=== PATIENT | male | born 1950 | race Two or more races ===

== ENCOUNTER 2018-02-24 15:27 | Inpatient (IN) | payer MEDICAID, MEDICARE ==
[~2018-02-24] VITALS: Ht 172.7 cm; Wt 61.2 kg
[2018-02-24] MEDS ORDERED: SODIUM CHLORIDE 0.9% 1,000 ML IV ONE (16:05)
[2018-02-24] MEDS ORDERED: ACETAMINOPHEN 325MG TABLET PO ONE (16:15)
[2018-02-24 16:59] LABS: HEMATOCRIT. 40.8 % (42.0-52.0); MEAN CORPUSCULAR HEMOGLOBIN 28.9 pg (28.0-32.0); MEAN CORPUSCULAR VOLUME 84.3 fL (80.0-94.0); MEAN PLATELET VOLUME 8.9 fl (7.4-10.4); PLATELET 277 x1000/uL (130-400); RED BLOOD CELL COUNT 4.84 mill/uL (4.7-6.1)
[2018-02-24 17:03] LABS: CHLORIDE 107 mEq/L (98-107)
[2018-02-24 17:22] LABS: PLATELET ESTIMATE NORMAL
[2018-02-24] MEDS ORDERED: ASPIRIN 325MG TABLET PO ONE (17:30)
[2018-02-24 17:50] LABS: CLARITY URINE CLEAR (CLEAR); COLOR URINE DARK YELLOW (YELLOW); KETONES URINE 4+ (NEGATIVE); LEUKOCYTE ESTERASE URINE NEGATIVE (NEGATIVE); NITRITE URINE NEGATIVE (NEGATIVE); OCCULT BLOOD URINE 1+ (NEGATIVE); PH URINE 5.5 (4.5-8.0); PROTEIN URINE 1+ (NEGATIVE); SPECIFIC GRAVITY URINE 1.037 (1.005-1.030)
[2018-02-24 18:00] LABS: *COCAINE SCREEN URINE NEGATIVE (NEGATIVE)
[2018-02-24 18:01] LABS: *AMPHETAMINES SCREEN URINE NEGATIVE (NEGATIVE); *BARBITURATES SCREEN URINE NEGATIVE (NEGATIVE); CANNABINOID URINE SCREEN NEGATIVE (NEGATIVE); METHADONE URINE SCREEN NEGATIVE (NEGATIVE); OPIATES URINE SCREEN NEGATIVE (NEGATIVE); PHENCYCLIDINE URINE SCREEN NEGATIVE (NEGATIVE)
[2018-02-24 18:02] LABS: *BENZODIAZEPINES SCREEN URINE NEGATIVE (NEGATIVE)
[2018-02-24 23:58] VITALS: BP 136/72
[2018-02-25] VITALS: BP 136/72
[2018-02-25] MEDS ORDERED: HYDROCODONE/ACETAMINOPHEN 5/325MG TABLET PO PRN (00:15)
[2018-02-25] MEDS ORDERED: ONDANSETRON HCL 4MG/2ML VIAL IV PRN (00:15)
[2018-02-25] MEDS ORDERED: ONDANSETRON 4MG ODT PO PRN (00:15)
[2018-02-25] MEDS: DEXT 5%/0.45% NACL 1000ML 1,000 ML IV SCH ×2 (00:48→14:22)
[2018-02-25] MEDS: MORPHINE SULFATE 4 MG/ML CPJ (NOT FOR IM USE) IV PRN ×2 (06:54→12:44)
[2018-02-25] MEDS: MAGNESIUM/ALUMINUM HYDROXIDE/SIMETHICONE 30ML UDC PO PRN (07:02)
[2018-02-25 08:00] VITALS: BP 135/69
[2018-02-25] MEDS: ASPIRIN 325MG EC TABLET PO SCH (08:44)
[2018-02-25] MEDS: BLOOD SUGAR DIAGNOSTIC STRIP TEST SCH ×3 (11:45→21:10)
[2018-02-25] MEDS ORDERED: DIATR MEGLU/DIATRIZOATE SOLN 30ML ONE (11:45)
[2018-02-25 12:00] VITALS: BP 161/78
[2018-02-25] MEDS ORDERED: DEXTROSE 50% WATER 50ML SYRINGE IV PRN (13:15)
[2018-02-25] MEDS: INSULIN LISPRO 100 UNITS/ML SUBCUT SCH ×3 (14:22→21:17)
[2018-02-25 16:00] VITALS: BP 155/74
[2018-02-25 20:00] VITALS: BP 135/68
[2018-02-26] VITALS: BP 156/82
[2018-02-26] MEDS: MORPHINE SULFATE 4 MG/ML CPJ (NOT FOR IM USE) IV PRN (00:36)
[2018-02-26 04:00] VITALS: BP 159/84
[2018-02-26] MEDS: DEXT 5%/0.45% NACL 1000ML 1,000 ML IV SCH ×2 (04:58→22:18)
[2018-02-26] MEDS: BLOOD SUGAR DIAGNOSTIC STRIP TEST SCH ×4 (06:54→22:15)
[2018-02-26] MEDS: INSULIN LISPRO 100 UNITS/ML SUBCUT SCH ×4 (06:58→22:26)
[2018-02-26 08:00] VITALS: BP 168/83
[2018-02-26 08:18] LABS: BASOPHILS % 0.4 % (0.0-2.0); EOSINOPHILS % 2.3 % (0.0-5.0); HEMATOCRIT. 40.9 % (42.0-52.0); HEMOGLOBIN. 14.2 g/dL (14.0-18.0); LYMPHOCYTES % 29.2 % (20.0-50.0); MEAN CORPUSCULAR HEMOGLOBIN 29.1 pg (28.0-32.0); MEAN CORPUSCULAR VOLUME 83.9 fL (80.0-94.0); MEAN PLATELET VOLUME 8.8 fl (7.4-10.4); MONOCYTES % 10.6 % (2.0-8.0); NEUTROPHILS % 57.5 % (40.0-76.0); PLATELET 230 x1000/uL (130-400); RED BLOOD CELL COUNT 4.88 mill/uL (4.7-6.1); RED CELL DISTRIBUTION WIDTH 14.1 % (11.6-14.6)
[2018-02-26 08:54] LABS: CHLORIDE 104 mEq/L (98-107)
[2018-02-26] MEDS: ASPIRIN 325MG EC TABLET PO SCH (09:21)
[2018-02-26] MEDS ORDERED: POTASSIUM CHLORIDE 20MEQ TABLET SR PO NR (10:30)
[2018-02-26] MEDS: MAGNESIUM/ALUMINUM HYDROXIDE/SIMETHICONE 30ML UDC PO PRN (11:45)
[2018-02-26 12:00] VITALS: BP 152/87
[2018-02-26 16:00] VITALS: BP 166/76
[2018-02-26 20:00] VITALS: BP 140/74
[2018-02-27] VITALS: BP 156/68
[2018-02-27 04:00] VITALS: BP 148/57
[2018-02-27] MEDS: DEXT 5%/0.45% NACL 1000ML 1,000 ML IV SCH ×2 (05:22→18:16)
[2018-02-27] MEDS: BLOOD SUGAR DIAGNOSTIC STRIP TEST SCH ×4 (06:15→21:00)
[2018-02-27] MEDS: INSULIN LISPRO 100 UNITS/ML SUBCUT SCH ×4 (06:34→22:11)
[2018-02-27 08:00] VITALS: BP 143/65
[2018-02-27] MEDS: MORPHINE SULFATE 4 MG/ML CPJ (NOT FOR IM USE) IV PRN (08:14)
[2018-02-27 08:58] LABS: BASOPHILS % 0.4 % (0.0-2.0); HEMATOCRIT. 39.5 % (42.0-52.0); LYMPHOCYTES % 40.1 % (20.0-50.0); MEAN CORPUSCULAR HEMOGLOBIN 29.1 pg (28.0-32.0); MEAN CORPUSCULAR VOLUME 82.3 fL (80.0-94.0); MEAN PLATELET VOLUME 8.7 fl (7.4-10.4); MONOCYTES % 12.9 % (2.0-8.0); NEUTROPHILS % 44.6 % (40.0-76.0); PLATELET 231 x1000/uL (130-400); RED CELL DISTRIBUTION WIDTH 14.2 % (11.6-14.6)
[2018-02-27] MEDS: ASPIRIN 325MG EC TABLET PO SCH (09:55)
[2018-02-27 11:17] LABS: CHLORIDE 101 mEq/L (98-107)
[2018-02-27 12:00] VITALS: BP 140/50
[2018-02-27] MEDS: PANTOPRAZOLE SODIUM 40 MG/VIAL IV SCH (12:14)
[2018-02-27 16:00] VITALS: BP 140/72
[2018-02-27 20:00] VITALS: BP 133/56
[2018-02-27] MEDS ORDERED: POTASSIUM CHLORIDE 20MEQ TABLET SR PO NR (20:00)
[2018-02-28] VITALS: BP 139/70
[2018-02-28 04:00] VITALS: BP 136/58
[2018-02-28] MEDS: BLOOD SUGAR DIAGNOSTIC STRIP TEST SCH ×4 (06:17→21:57)
[2018-02-28] MEDS: INSULIN LISPRO 100 UNITS/ML SUBCUT SCH ×4 (06:20→22:54)
[2018-02-28] MEDS: DEXT 5%/0.45% NACL 1000ML 1,000 ML IV SCH ×2 (06:46→21:27)
[2018-02-28 07:46] LABS: CHLORIDE 101 mEq/L (98-107)
[2018-02-28 07:47] LABS: BASOPHILS % 0.5 % (0.0-2.0); EOSINOPHILS % 1.5 % (0.0-5.0); HEMATOCRIT. 38.6 % (42.0-52.0); HEMOGLOBIN. 13.6 g/dL (14.0-18.0); LYMPHOCYTES % 40.2 % (20.0-50.0); MEAN CORPUSCULAR HEMOGLOBIN 29.3 pg (28.0-32.0); MEAN CORPUSCULAR VOLUME 82.9 fL (80.0-94.0); MEAN PLATELET VOLUME 8.9 fl (7.4-10.4); MONOCYTES % 11.5 % (2.0-8.0); NEUTROPHILS % 46.3 % (40.0-76.0); PLATELET 224 x1000/uL (130-400); RED BLOOD CELL COUNT 4.65 mill/uL (4.7-6.1); RED CELL DISTRIBUTION WIDTH 14.2 % (11.6-14.6)
[2018-02-28 07:49] VITALS: BP 144/82
[2018-02-28] MEDS: PANTOPRAZOLE SODIUM 40 MG/VIAL IV SCH (09:35)
[2018-02-28] MEDS: ASPIRIN 325MG EC TABLET PO SCH (09:35)
[2018-02-28 11:45] VITALS: BP 157/87
[2018-02-28 16:09] VITALS: BP 144/71
[2018-02-28 20:00] VITALS: BP 142/83
[2018-03-01] VITALS: BP 137/68
[2018-03-01 04:00] VITALS: BP 129/79
[2018-03-01] MEDS: BLOOD SUGAR DIAGNOSTIC STRIP TEST SCH ×4 (06:18→21:28)
[2018-03-01] MEDS: INSULIN LISPRO 100 UNITS/ML SUBCUT SCH ×4 (07:11→21:28)
[2018-03-01 08:00] VITALS: BP 137/73
[2018-03-01] MEDS: PANTOPRAZOLE SODIUM 40 MG/VIAL IV SCH (09:09)
[2018-03-01] MEDS: ASPIRIN 325MG EC TABLET PO SCH (09:09)
[2018-03-01] MEDS: DEXT 5%/0.45% NACL 1000ML 1,000 ML IV SCH ×2 (11:03→20:14)
[2018-03-01 12:00] VITALS: BP 151/66
[2018-03-01] MEDS: LORAZEPAM 2MG/ML CPJ IV PRN (15:47)
[2018-03-01 16:00] VITALS: BP 147/78
[2018-03-01 20:00] VITALS: BP 109/65
[2018-03-02] VITALS: BP 101/60
[2018-03-02 04:34] VITALS: BP 148/80
[2018-03-02] MEDS: BLOOD SUGAR DIAGNOSTIC STRIP TEST SCH ×4 (06:15→21:28)
[2018-03-02] MEDS: INSULIN LISPRO 100 UNITS/ML SUBCUT SCH ×4 (06:17→22:10)
[2018-03-02 08:00] VITALS: BP 140/68
[2018-03-02] MEDS: PANTOPRAZOLE SODIUM 40 MG/VIAL IV SCH (09:00)
[2018-03-02] MEDS: ASPIRIN 325MG EC TABLET PO SCH (09:00)
[2018-03-02] MEDS: LORAZEPAM 2MG/ML CPJ IV PRN (10:07)
[2018-03-02 12:00] VITALS: BP 140/84
[2018-03-02 13:01] LABS: BASOPHILS % 0.6 % (0.0-2.0); HEMATOCRIT. 38.3 % (42.0-52.0); HEMOGLOBIN. 13.5 g/dL (14.0-18.0); LYMPHOCYTES % 28.5 % (20.0-50.0); MEAN CORPUSCULAR HEMOGLOBIN 29.2 pg (28.0-32.0); MEAN CORPUSCULAR VOLUME 82.7 fL (80.0-94.0); MEAN PLATELET VOLUME 8.4 fl (7.4-10.4); MONOCYTES % 9.3 % (2.0-8.0); NEUTROPHILS % 60.6 % (40.0-76.0); PLATELET 225 x1000/uL (130-400); RED BLOOD CELL COUNT 4.63 mill/uL (4.7-6.1)
[2018-03-02] MEDS: DEXT 5%/0.45% NACL 1000ML 1,000 ML IV SCH (13:22)
[2018-03-02 13:24] LABS: CHLORIDE 100 mEq/L (98-107)
[2018-03-02 13:27] LABS: AMMONIA 11 uMol/L (<32)
[2018-03-02 16:00] VITALS: BP 137/72
[2018-03-02 20:00] VITALS: BP 149/83
[2018-03-03] VITALS: BP 164/95
[2018-03-03] MEDS: DEXT 5%/0.45% NACL 1000ML 1,000 ML IV SCH ×2 (02:42→16:02)
[2018-03-03 04:00] VITALS: BP 165/85
[2018-03-03] MEDS: BLOOD SUGAR DIAGNOSTIC STRIP TEST SCH ×4 (06:41→21:00)
[2018-03-03] MEDS: INSULIN LISPRO 100 UNITS/ML SUBCUT SCH ×4 (07:17→22:04)
[2018-03-03 08:00] VITALS: BP 147/80
[2018-03-03] MEDS: PANTOPRAZOLE SODIUM 40 MG/VIAL IV SCH (08:09)
[2018-03-03] MEDS: ASPIRIN 325MG EC TABLET PO SCH (08:09)
[2018-03-03 12:00] VITALS: BP 146/70
[2018-03-03 16:00] VITALS: BP 147/79
[2018-03-03 20:00] VITALS: BP 152/82
[2018-03-03] MEDS: LORAZEPAM 2MG/ML CPJ IV PRN (20:55)
[2018-03-04] VITALS: BP 162/86
[2018-03-04 04:00] VITALS: BP 164/84
[2018-03-04] MEDS: DEXT 5%/0.45% NACL 1000ML 1,000 ML IV SCH ×2 (06:43→21:14)
[2018-03-04] MEDS: BLOOD SUGAR DIAGNOSTIC STRIP TEST SCH ×4 (06:45→21:13)
[2018-03-04] MEDS: INSULIN LISPRO 100 UNITS/ML SUBCUT SCH ×4 (06:49→21:35)
[2018-03-04 08:00] VITALS: BP 157/91
[2018-03-04] MEDS: PANTOPRAZOLE SODIUM 40 MG/VIAL IV SCH (09:38)
[2018-03-04] MEDS: ASPIRIN 325MG EC TABLET PO SCH (09:41)
[2018-03-04 11:55] VITALS: BP 140/71
[2018-03-04] MEDS: LORAZEPAM 2MG/ML CPJ IV PRN ×2 (13:14→20:05)
[2018-03-04 20:00] VITALS: BP 104/60
[2018-03-05 00:03] VITALS: BP 118/68
[2018-03-05 04:00] VITALS: BP_SYST 108; BP_SYST 111; BP_DIAS 59; BP_DIAS 62
[2018-03-05] MEDS: BLOOD SUGAR DIAGNOSTIC STRIP TEST SCH ×4 (06:50→21:27)
[2018-03-05] MEDS: INSULIN LISPRO 100 UNITS/ML SUBCUT SCH ×4 (06:50→21:26)
[2018-03-05 08:00] VITALS: BP 112/70
[2018-03-05] MEDS: FAMOTIDINE 20MG TABLET PO SCH ×2 (08:40→17:02)
[2018-03-05] MEDS: DEXT 5%/0.45% NACL 1000ML 1,000 ML IV SCH (08:40)
[2018-03-05] MEDS: ASPIRIN 325MG EC TABLET PO SCH (08:40)
[2018-03-05 12:00] VITALS: BP 115/65
[2018-03-05 16:00] VITALS: BP 135/78
[2018-03-05 20:00] VITALS: BP 136/86
[2018-03-06] VITALS: BP 149/73
[2018-03-06] MEDS: DEXT 5%/0.45% NACL 1000ML 1,000 ML IV SCH (01:15)
[2018-03-06] MEDS: LORAZEPAM 2MG/ML CPJ IV PRN (05:13)
[2018-03-06] MEDS: BLOOD SUGAR DIAGNOSTIC STRIP TEST SCH ×4 (07:04→20:31)
[2018-03-06] MEDS: INSULIN LISPRO 100 UNITS/ML SUBCUT SCH ×4 (07:04→20:30)
[2018-03-06 08:00] VITALS: BP 126/77
[2018-03-06] MEDS: ASPIRIN 325MG EC TABLET PO SCH (09:11)
[2018-03-06] MEDS: FAMOTIDINE 20MG TABLET PO SCH ×2 (09:11→18:44)
[2018-03-06 12:00] VITALS: BP 113/58
[2018-03-06 16:00] VITALS: BP 159/79
[2018-03-06 20:00] VITALS: BP_SYST 104; BP_SYST 128; BP_SYST 134; BP_DIAS 58; BP_DIAS 76
[2018-03-07 00:30] VITALS: BP 139/71
[2018-03-07 04:00] VITALS: BP 147/78
[2018-03-07] MEDS: BLOOD SUGAR DIAGNOSTIC STRIP TEST SCH ×4 (06:50→21:52)
[2018-03-07] MEDS: INSULIN LISPRO 100 UNITS/ML SUBCUT SCH ×4 (06:50→22:06)
[2018-03-07 07:47] VITALS: BP 123/62
[2018-03-07] MEDS: ACETAMINOPHEN 325MG TABLET PO PRN (08:11)
[2018-03-07] MEDS: FAMOTIDINE 20MG TABLET PO SCH ×2 (09:56→18:44)
[2018-03-07] MEDS: ASPIRIN 325MG EC TABLET PO SCH (09:56)
[2018-03-07 11:17] VITALS: BP 151/81
[2018-03-07] MEDS: TRAMADOL 50MG TABLET PO PRN (12:35)
[2018-03-07 17:19] VITALS: BP 162/72
[2018-03-07] MEDS: LORAZEPAM 2MG/ML CPJ IV PRN (19:39)
[2018-03-07] MEDS: MAGNESIUM/ALUMINUM HYDROXIDE/SIMETHICONE 30ML UDC PO PRN (19:39)
[2018-03-07 20:08] VITALS: BP 116/69
[2018-03-08] VITALS: BP 122/78
[2018-03-08 04:00] VITALS: BP 136/81
[2018-03-08] MEDS: INSULIN LISPRO 100 UNITS/ML SUBCUT SCH ×4 (06:59→22:08)
[2018-03-08] MEDS: BLOOD SUGAR DIAGNOSTIC STRIP TEST SCH ×4 (06:59→21:30)
[2018-03-08 08:00] VITALS: BP 128/70
[2018-03-08] MEDS: ASPIRIN 325MG EC TABLET PO SCH (09:26)
[2018-03-08] MEDS: LORAZEPAM 2MG/ML CPJ IV PRN ×2 (09:27→20:04)
[2018-03-08] MEDS: FAMOTIDINE 20MG TABLET PO SCH ×2 (09:27→18:12)
[2018-03-08 12:00] VITALS: BP 137/80
[2018-03-08 16:00] VITALS: BP 131/75
[2018-03-09 04:00] VITALS: BP 141/68
[2018-03-09] MEDS: INSULIN LISPRO 100 UNITS/ML SUBCUT SCH ×4 (06:40→21:59)
[2018-03-09] MEDS: BLOOD SUGAR DIAGNOSTIC STRIP TEST SCH ×4 (06:40→21:56)
[2018-03-09] MEDS: MAGNESIUM/ALUMINUM HYDROXIDE/SIMETHICONE 30ML UDC PO PRN (06:49)
[2018-03-09 08:11] VITALS: BP 119/69
[2018-03-09] MEDS: FAMOTIDINE 20MG TABLET PO SCH ×2 (10:52→17:54)
[2018-03-09] MEDS: ASPIRIN 325MG EC TABLET PO SCH (10:52)
[2018-03-09 12:00] VITALS: BP 141/83
[2018-03-09] MEDS: LORAZEPAM 2MG/ML CPJ IV PRN ×2 (12:25→20:57)
[2018-03-09 16:04] VITALS: BP 133/79
[2018-03-09 20:07] VITALS: BP 143/78
[2018-03-09] MEDS: TRAMADOL 50MG TABLET PO PRN (20:38)
[2018-03-10] VITALS (7 sets, daily range): BP systolic 119–155; BP diastolic 60–90
[2018-03-10] MEDS: TRAMADOL 50MG TABLET PO PRN (06:05)
[2018-03-10] MEDS: INSULIN LISPRO 100 UNITS/ML SUBCUT SCH ×5 (07:04→21:12)
[2018-03-10] MEDS: BLOOD SUGAR DIAGNOSTIC STRIP TEST SCH ×4 (07:04→20:55)
[2018-03-10] MEDS: FAMOTIDINE 20MG TABLET PO SCH ×2 (09:37→17:37)
[2018-03-10] MEDS: ASPIRIN 325MG EC TABLET PO SCH (09:37)
[2018-03-10] MEDS: LORAZEPAM 2MG/ML CPJ IV PRN (13:37)
[2018-03-11] VITALS: BP 124/68
[2018-03-11] MEDS: BLOOD SUGAR DIAGNOSTIC STRIP TEST SCH ×4 (05:36→20:35)
[2018-03-11] MEDS: INSULIN LISPRO 100 UNITS/ML SUBCUT SCH ×4 (05:53→20:39)
[2018-03-11 08:00] VITALS: BP 131/82
[2018-03-11] MEDS: FAMOTIDINE 20MG TABLET PO SCH ×2 (08:52→17:39)
[2018-03-11] MEDS: ASPIRIN 325MG EC TABLET PO SCH (08:52)
[2018-03-11] MEDS: LORAZEPAM 2MG/ML CPJ IV PRN (11:30)
[2018-03-11] MEDS: MAGNESIUM/ALUMINUM HYDROXIDE/SIMETHICONE 30ML UDC PO PRN ×2 (13:11→18:26)
[2018-03-11 13:45] VITALS: BP 115/63
[2018-03-11] MEDS: ACETAMINOPHEN 325MG TABLET PO PRN (14:08)
[2018-03-11] MEDS ORDERED: BISACODYL 10MG SUPP PR NR (14:45)
[2018-03-11] MEDS: TRAMADOL 50MG TABLET PO PRN (17:20)
[2018-03-11 20:05] VITALS: BP 125/75
[2018-03-12] VITALS: BP 116/77
[2018-03-12 04:00] VITALS: BP 117/68
[2018-03-12] MEDS: BLOOD SUGAR DIAGNOSTIC STRIP TEST SCH ×4 (07:09→20:45)
[2018-03-12] MEDS: INSULIN LISPRO 100 UNITS/ML SUBCUT SCH ×4 (07:13→20:48)
[2018-03-12 08:00] VITALS: BP 127/76
[2018-03-12] MEDS: FAMOTIDINE 20MG TABLET PO SCH ×2 (08:49→18:24)
[2018-03-12] MEDS: ASPIRIN 325MG EC TABLET PO SCH (08:49)
[2018-03-12 12:00] VITALS: BP 123/78
[2018-03-12] MEDS: LORAZEPAM 2MG/ML CPJ IV PRN (13:38)
[2018-03-12 16:00] VITALS: BP 122/78
[2018-03-12 20:00] VITALS: BP 99/57
[2018-03-13] VITALS: BP 123/81
[2018-03-13 04:00] VITALS: BP 118/77
[2018-03-13] MEDS: BLOOD SUGAR DIAGNOSTIC STRIP TEST SCH ×4 (06:12→20:56)
[2018-03-13] MEDS: INSULIN LISPRO 100 UNITS/ML SUBCUT SCH ×4 (06:23→21:01)
[2018-03-13 08:00] VITALS: BP 133/87
[2018-03-13] MEDS: FAMOTIDINE 20MG TABLET PO SCH ×2 (08:18→16:25)
[2018-03-13] MEDS: ASPIRIN 325MG EC TABLET PO SCH (08:19)
[2018-03-13] MEDS ORDERED: LORAZEPAM 1MG TABLET PO PRN (08:30)
[2018-03-13] MEDS: LORAZEPAM 2MG/ML CPJ IV PRN ×2 (08:37→16:24)
[2018-03-13 12:00] VITALS: BP 135/81
[2018-03-13 16:00] VITALS: BP 110/60
[2018-03-13 20:00] VITALS: BP 100/61
[2018-03-14] VITALS: BP 152/86
[2018-03-14 04:00] VITALS: BP 152/86
[2018-03-14] MEDS: INSULIN LISPRO 100 UNITS/ML SUBCUT SCH ×4 (07:07→21:17)
[2018-03-14] MEDS: BLOOD SUGAR DIAGNOSTIC STRIP TEST SCH ×4 (07:10→21:12)
[2018-03-14 08:00] VITALS: BP 129/74
[2018-03-14] MEDS: FAMOTIDINE 20MG TABLET PO SCH ×2 (08:26→17:37)
[2018-03-14] MEDS: ASPIRIN 325MG EC TABLET PO SCH (08:26)
[2018-03-14] MEDS: ACETAMINOPHEN 325MG TABLET PO PRN ×2 (08:26→20:24)
[2018-03-14] MEDS: LORAZEPAM 2MG/ML CPJ IV PRN ×3 (09:16→20:49)
[2018-03-14 12:00] VITALS: BP 106/68
[2018-03-14 16:00] VITALS: BP 120/78
[2018-03-14 20:00] VITALS: BP 138/94
[2018-03-15] VITALS: BP 130/88
[2018-03-15 04:00] VITALS: BP 119/83
[2018-03-15] MEDS: BLOOD SUGAR DIAGNOSTIC STRIP TEST SCH ×4 (06:19→21:36)
[2018-03-15] MEDS: INSULIN LISPRO 100 UNITS/ML SUBCUT SCH ×4 (06:24→21:44)
[2018-03-15 08:00] VITALS: BP 128/95
[2018-03-15] MEDS: ASPIRIN 325MG EC TABLET PO SCH (08:26)
[2018-03-15] MEDS: FAMOTIDINE 20MG TABLET PO SCH ×2 (08:26→17:43)
[2018-03-15] MEDS: LORAZEPAM 2MG/ML CPJ IV PRN ×2 (08:46→21:43)
[2018-03-15 12:00] VITALS: BP 116/89
[2018-03-15] MEDS: MAGNESIUM/ALUMINUM HYDROXIDE/SIMETHICONE 30ML UDC PO PRN (14:22)
[2018-03-15 16:00] VITALS: BP 129/78
[2018-03-15] MEDS ORDERED: TRAMADOL 50MG TABLET PO PRN (16:30)
[2018-03-15 20:00] VITALS: BP 124/73
[2018-03-16] VITALS: BP 118/81
[2018-03-16 04:00] VITALS: BP 109/59
[2018-03-16] MEDS: BLOOD SUGAR DIAGNOSTIC STRIP TEST SCH ×4 (06:27→21:45)
[2018-03-16] MEDS: INSULIN LISPRO 100 UNITS/ML SUBCUT SCH ×4 (06:33→21:49)
[2018-03-16 08:00] VITALS: BP 111/72
[2018-03-16] MEDS: ASPIRIN 325MG EC TABLET PO SCH (08:50)
[2018-03-16] MEDS: FAMOTIDINE 20MG TABLET PO SCH ×2 (08:50→17:05)
[2018-03-16 12:00] VITALS: BP 156/82
[2018-03-16 16:00] VITALS: BP 118/76
[2018-03-16 19:50] VITALS: BP 135/86
[2018-03-17] VITALS: BP 139/84
[2018-03-17] MEDS: MAGNESIUM/ALUMINUM HYDROXIDE/SIMETHICONE 30ML UDC PO PRN (03:55)
[2018-03-17 04:00] VITALS: BP 103/63
[2018-03-17] MEDS: LORAZEPAM 2MG/ML CPJ IV PRN ×2 (04:00→21:35)
[2018-03-17] MEDS: BLOOD SUGAR DIAGNOSTIC STRIP TEST SCH ×4 (05:54→20:20)
[2018-03-17] MEDS: INSULIN LISPRO 100 UNITS/ML SUBCUT SCH ×4 (06:05→20:28)
[2018-03-17 08:00] VITALS: BP 108/70
[2018-03-17] MEDS: ASPIRIN 325MG EC TABLET PO SCH (08:41)
[2018-03-17] MEDS: FAMOTIDINE 20MG TABLET PO SCH ×2 (08:41→16:46)
[2018-03-17 12:09] VITALS: BP 118/74
[2018-03-17 16:15] VITALS: BP 130/72
[2018-03-17 20:00] VITALS: BP 122/83
[2018-03-18 00:02] VITALS: BP 118/60
[2018-03-18 04:00] VITALS: BP 135/85
[2018-03-18] MEDS: BLOOD SUGAR DIAGNOSTIC STRIP TEST SCH ×4 (06:12→21:00)
[2018-03-18] MEDS: INSULIN LISPRO 100 UNITS/ML SUBCUT SCH ×4 (06:15→21:34)
[2018-03-18 08:00] VITALS: BP 125/78
[2018-03-18] MEDS: ASPIRIN 325MG EC TABLET PO SCH (08:25)
[2018-03-18] MEDS: FAMOTIDINE 20MG TABLET PO SCH ×2 (08:25→16:53)
[2018-03-18 11:57] VITALS: BP 135/84
[2018-03-18 16:00] VITALS: BP 136/88
[2018-03-18 20:00] VITALS: BP 149/99
[2018-03-19] VITALS: BP 110/70
[2018-03-19 04:00] VITALS: BP 113/65
[2018-03-19] MEDS: BLOOD SUGAR DIAGNOSTIC STRIP TEST SCH ×4 (06:33→21:49)
[2018-03-19] MEDS: INSULIN LISPRO 100 UNITS/ML SUBCUT SCH ×4 (06:39→21:15)
[2018-03-19 08:00] VITALS: BP 127/76
[2018-03-19] MEDS: ASPIRIN 325MG EC TABLET PO SCH (08:31)
[2018-03-19] MEDS: FAMOTIDINE 20MG TABLET PO SCH ×2 (08:31→16:31)
[2018-03-19 12:00] VITALS: BP 118/73
[2018-03-19 16:00] VITALS: BP 131/79
[2018-03-19 20:00] VITALS: BP 141/91
[2018-03-20] VITALS: BP 133/81
[2018-03-20 04:00] VITALS: BP 109/70
[2018-03-20] MEDS: INSULIN LISPRO 100 UNITS/ML SUBCUT SCH ×4 (06:19→21:16)
[2018-03-20] MEDS: BLOOD SUGAR DIAGNOSTIC STRIP TEST SCH ×6 (06:19→21:19)
[2018-03-20 08:00] VITALS: BP 135/81
[2018-03-20] MEDS: FAMOTIDINE 20MG TABLET PO SCH ×2 (10:10→18:17)
[2018-03-20] MEDS: ASPIRIN 325MG EC TABLET PO SCH (10:11)
[2018-03-20 12:00] VITALS: BP 136/76
[2018-03-20 16:00] VITALS: BP 133/70
[2018-03-20 20:00] VITALS: BP 129/65
[2018-03-20] MEDS: INSULIN GLARGINE UD 100 UNITS/ML SYR SUBCUT SCH (21:19)
[2018-03-21] VITALS: BP 122/63
[2018-03-21 04:00] VITALS: BP 113/72
[2018-03-21] MEDS: BLOOD SUGAR DIAGNOSTIC STRIP TEST SCH ×8 (06:31→21:00)
[2018-03-21] MEDS: INSULIN LISPRO 100 UNITS/ML SUBCUT SCH ×4 (06:32→21:00)
[2018-03-21 07:44] VITALS: BP 122/78
[2018-03-21] MEDS: FAMOTIDINE 20MG TABLET PO SCH ×2 (09:40→18:49)
[2018-03-21] MEDS: ASPIRIN 325MG EC TABLET PO SCH (09:40)
[2018-03-21 11:47] VITALS: BP 131/78
[2018-03-21 16:00] VITALS: BP 133/76
[2018-03-21 20:00] VITALS: BP 137/83
[2018-03-21] MEDS: INSULIN GLARGINE UD 100 UNITS/ML SYR SUBCUT SCH (22:30)
[2018-03-22] VITALS: BP 129/67
[2018-03-22 04:00] VITALS: BP 111/66
[2018-03-22] MEDS: BLOOD SUGAR DIAGNOSTIC STRIP TEST SCH ×5 (07:10→21:00)
[2018-03-22 08:00] VITALS: BP 144/80
[2018-03-22] MEDS: ASPIRIN 325MG EC TABLET PO SCH (09:25)
[2018-03-22] MEDS: FAMOTIDINE 20MG TABLET PO SCH ×2 (09:25→16:43)
[2018-03-22] MEDS: INSULIN LISPRO 100 UNITS/ML SUBCUT SCH ×4 (09:26→22:10)
[2018-03-22 12:00] VITALS: BP 100/63
[2018-03-22] MEDS: LORAZEPAM 2MG/ML CPJ IV PRN (13:22)
[2018-03-22 16:00] VITALS: BP 115/78
[2018-03-22 20:00] VITALS: BP 109/59
[2018-03-22] MEDS: INSULIN GLARGINE UD 100 UNITS/ML SYR SUBCUT SCH (22:13)
[2018-03-23] VITALS: BP 148/76
[2018-03-23 04:00] VITALS: BP 127/63
[2018-03-23] MEDS: INSULIN LISPRO 100 UNITS/ML SUBCUT SCH ×4 (06:07→21:45)
[2018-03-23] MEDS: BLOOD SUGAR DIAGNOSTIC STRIP TEST SCH ×4 (06:07→21:42)
[2018-03-23 08:00] VITALS: BP 114/75
[2018-03-23] MEDS: ASPIRIN 325MG EC TABLET PO SCH (09:07)
[2018-03-23] MEDS: FAMOTIDINE 20MG TABLET PO SCH ×2 (09:08→16:43)
[2018-03-23 12:00] VITALS: BP 118/81
[2018-03-23 16:00] VITALS: BP 136/66
[2018-03-23 20:00] VITALS: BP 134/82
[2018-03-23] MEDS: INSULIN GLARGINE UD 100 UNITS/ML SYR SUBCUT SCH (21:46)
[2018-03-24] VITALS: BP 136/82
[2018-03-24 04:00] VITALS: BP 136/76
[2018-03-24] MEDS: BLOOD SUGAR DIAGNOSTIC STRIP TEST SCH ×4 (06:08→20:02)
[2018-03-24] MEDS: INSULIN LISPRO 100 UNITS/ML SUBCUT SCH ×4 (06:09→20:04)
[2018-03-24 08:00] VITALS: BP 124/75
[2018-03-24] MEDS: ASPIRIN 325MG EC TABLET PO SCH (08:19)
[2018-03-24] MEDS: FAMOTIDINE 20MG TABLET PO SCH ×2 (08:19→17:00)
[2018-03-24 12:00] VITALS: BP 108/66
[2018-03-24 16:00] VITALS: BP 93/54
[2018-03-24 20:00] VITALS: BP 142/79
[2018-03-24] MEDS: INSULIN GLARGINE UD 100 UNITS/ML SYR SUBCUT SCH (21:34)
[2018-03-25] VITALS: BP 108/68
[2018-03-25 04:00] VITALS: BP 138/69
[2018-03-25] MEDS: BLOOD SUGAR DIAGNOSTIC STRIP TEST SCH (06:47)
[2018-03-25] MEDS: INSULIN LISPRO 100 UNITS/ML SUBCUT SCH ×4 (06:47→21:21)
[2018-03-25] MEDS: LORAZEPAM 2MG/ML CPJ IV PRN (09:05)
[2018-03-25] MEDS: FAMOTIDINE 20MG TABLET PO SCH ×2 (12:42→18:15)
[2018-03-25] MEDS: ASPIRIN 325MG EC TABLET PO SCH (12:42)
[2018-03-25 20:00] VITALS: BP 113/64
[2018-03-25] MEDS: INSULIN GLARGINE UD 100 UNITS/ML SYR SUBCUT SCH (21:22)
[2018-03-26] VITALS: BP 108/65
[2018-03-26 04:00] VITALS: BP 118/76
[2018-03-26] MEDS: INSULIN LISPRO 100 UNITS/ML SUBCUT SCH ×4 (05:53→21:05)
[2018-03-26] MEDS: FAMOTIDINE 20MG TABLET PO SCH ×3 (09:03→16:30)
[2018-03-26] MEDS ORDERED: LORAZEPAM 2MG/ML CPJ IV PRN (09:30)
[2018-03-26] MEDS ORDERED: DEXTROSE 50% WATER 50ML SYRINGE IV PRN (09:30)
[2018-03-26] MEDS: BLOOD SUGAR DIAGNOSTIC STRIP TEST SCH ×4 (09:32→21:09)
[2018-03-26 12:00] VITALS: BP 114/76
[2018-03-26 16:00] VITALS: BP 117/70
[2018-03-26] MEDS: LORAZEPAM 2MG/ML CPJ IV PRN (17:08)
[2018-03-26 20:00] VITALS: BP 100/47
[2018-03-26] MEDS: INSULIN GLARGINE UD 100 UNITS/ML SYR SUBCUT SCH (21:11)
[2018-03-27] VITALS: BP 100/40
[2018-03-27 04:00] VITALS: BP 123/56
[2018-03-27] MEDS: BLOOD SUGAR DIAGNOSTIC STRIP TEST SCH ×4 (06:39→21:21)
[2018-03-27] MEDS: INSULIN LISPRO 100 UNITS/ML SUBCUT SCH ×4 (06:39→21:20)
[2018-03-27 08:00] VITALS: BP 113/68
[2018-03-27] MEDS: FAMOTIDINE 20MG TABLET PO SCH ×2 (08:10→15:54)
[2018-03-27 12:01] VITALS: BP 113/62
[2018-03-27 16:00] VITALS: BP 94/29
[2018-03-27 20:00] VITALS: BP 123/76
[2018-03-27] MEDS: INSULIN GLARGINE UD 100 UNITS/ML SYR SUBCUT SCH (21:20)
[2018-03-28] VITALS: BP 148/84
[2018-03-28 04:00] VITALS: BP 139/76
[2018-03-28] MEDS: BLOOD SUGAR DIAGNOSTIC STRIP TEST SCH ×4 (06:28→21:00)
[2018-03-28] MEDS: INSULIN LISPRO 100 UNITS/ML SUBCUT SCH ×4 (06:28→21:00)
[2018-03-28 08:00] VITALS: BP_SYST 128; BP_SYST 135; BP_DIAS 78; BP_DIAS 89
[2018-03-28] MEDS: FAMOTIDINE 20MG TABLET PO SCH ×2 (08:17→16:29)
[2018-03-28] MEDS: TAMSULOSIN HCL 0.4MG SR CAPSULE PO SCH (10:22)
[2018-03-28 12:00] VITALS: BP 128/78
[2018-03-28 16:00] VITALS: BP 114/71
[2018-03-28 20:00] VITALS: BP 127/79
[2018-03-28] MEDS: INSULIN GLARGINE UD 100 UNITS/ML SYR SUBCUT SCH (21:30)
[2018-03-29] VITALS: BP 123/81
[2018-03-29 04:00] VITALS: BP 122/67
[2018-03-29] MEDS: BLOOD SUGAR DIAGNOSTIC STRIP TEST SCH ×4 (05:40→20:59)
[2018-03-29] MEDS: INSULIN LISPRO 100 UNITS/ML SUBCUT SCH ×4 (06:15→21:56)
[2018-03-29 08:00] VITALS: BP 132/72
[2018-03-29] MEDS: TAMSULOSIN HCL 0.4MG SR CAPSULE PO SCH (08:37)
[2018-03-29] MEDS: FAMOTIDINE 20MG TABLET PO SCH ×2 (08:37→17:01)
[2018-03-29 12:00] VITALS: BP 111/62
[2018-03-29 16:00] VITALS: BP 129/71
[2018-03-29 20:00] VITALS: BP 115/73
[2018-03-29] MEDS: INSULIN GLARGINE UD 100 UNITS/ML SYR SUBCUT SCH (21:57)
[2018-03-30] VITALS: BP 114/60
[2018-03-30 04:00] VITALS: BP 100/70
[2018-03-30] MEDS: BLOOD SUGAR DIAGNOSTIC STRIP TEST SCH ×4 (05:46→21:54)
[2018-03-30] MEDS: INSULIN LISPRO 100 UNITS/ML SUBCUT SCH ×4 (06:13→21:59)
[2018-03-30 08:00] VITALS: BP 133/85
[2018-03-30] MEDS: FAMOTIDINE 20MG TABLET PO SCH ×2 (09:23→19:02)
[2018-03-30] MEDS: TAMSULOSIN HCL 0.4MG SR CAPSULE PO SCH (09:23)
[2018-03-30 12:00] VITALS: BP 126/76
[2018-03-30 16:00] VITALS: BP 114/74
[2018-03-30 20:00] VITALS: BP 124/71
[2018-03-30] MEDS: INSULIN GLARGINE UD 100 UNITS/ML SYR SUBCUT SCH (21:59)
[2018-03-31] VITALS: BP 143/90
[2018-03-31 04:00] VITALS: BP 114/64
[2018-03-31 08:00] VITALS: BP 148/87
[2018-03-31] MEDS: FAMOTIDINE 20MG TABLET PO SCH (08:05)
[2018-03-31] MEDS: TAMSULOSIN HCL 0.4MG SR CAPSULE PO SCH (08:06)
[2018-03-31 08:57] VITALS: BP 148/87
[2018-03-31] MEDS: BLOOD SUGAR DIAGNOSTIC STRIP TEST SCH (11:57)
[2018-03-31] MEDS: INSULIN LISPRO 100 UNITS/ML SUBCUT SCH (12:02)
[2018-03-31] MEDS ORDERED: ACETAMINOPHEN 325MG TABLET PO NR (13:15)
== END 2018-03-31 13:35 | disposition home or self-care (01) | DRG 468 ==
LOC: EDBEDREQTM 18:12 → EDBEDREQ 18:12 → ER 18:36 → 5WST 18:46 → ENRESERV 20:35 → EDBEDREQ 23:17 → 8WST 03-10 12:25
PROVIDERS: ADMIT Hospitalist; ATTEND Hospitalist
DX: N28.1 Cyst of kidney, acquired (principal); G93.40 Encephalopathy, unspecified; E46 Unspecified protein-calorie malnutrition; R45.851 Suicidal ideations; R10.9 Unspecified abdominal pain; R53.1 Weakness; Z68.20 Body mass index [BMI] 20.0-20.9, adult; Z59.0 Homelessness; E11.9 Type 2 diabetes mellitus without complications; R00.0 Tachycardia, unspecified
CPT/HCPCS: 36415; 71045; 74018; 74176; 76700; 80053; 80305; 81003; 82140; 82962; 83605; 83690; 83880; 84484; 85025; 93005; 96360; 97116; 97162; 97165; 97530; 99285; C9113; J1815; J2060; J2270; J3490; J7030; Q0162; Q9963; A4315